=== PATIENT | male | born 1975 | race African-American/Black ===

== ENCOUNTER 2019-06-17 14:12 | Inpatient (IN) | payer SELFPAY ==
[2019-06-17] MEDS ORDERED: Ondansetron ODT 4 MG TAB PO PRN (16:06)
[2019-06-17] MEDS ORDERED: Nitroglycerin 0.4 MG TAB (25 Tab Bottle) SL PRN (16:08)
[2019-06-17 16:35] LABS: CKMB 40.2 ng/mL (0-6.6)
[2019-06-17] MEDS ORDERED: Acetaminophen 650 MG Suppository PR PRN (17:15)
[2019-06-17] MEDS ORDERED: Sodium Chloride 0.9% 1,000 ML IV SCH (17:15)
[2019-06-17 18:29] VITALS: BMI 27.8
--- NOTE | 2019-06-17 18:29 | HP ---
TIME OF ADMISSION: 1600 hours. PRIMARY CARE PHYSICIAN: None. CHIEF COMPLAINT: Chest pain. HISTORY OF PRESENT ILLNESS: Mr. Price is a pleasant 44-year-old gentleman, who presents with chest pain that has been ongoing for the last week and a half and significantly worse this morning. The patient states the pain has been about 5/ 10 in severity, lasting a few minutes, which he described as a burning sensation in the center of his chest. The patient states it felt like indigestion and he would burp or drink liquids and it would help to alleviate his discomfort. He denies any associated shortness of breath. No recent cough or hemoptysis. Has not experienced anything like this in the past. Today, however, the pain became severe and around 9:00 a.m., he states it was in the center of his chest, once again described as a burning sensation, but in addition to that, he felt as if someone was standing on his chest and states the pain was a 9/10 in severity. He denies any associated shortness of breath or diaphoresis. States the discomfort does not seem to be triggered by activity level. He states it would come whenever he was resting or sometimes when he was active. There did not seem to be any particular pattern according to the patient. He works on a farm. He presented to an outside ER due to concerns over the severe pain and the fact that he then began to experience pain radiating down his left arm with numbness. Denies any weakness. At the outside ER, he underwent an EKG that showed T-wave abnormalities. He had a troponin done, which was elevated at 0.103. The patient was therefore treated for an NSTEMI. He was given aspirin and Lovenox, also received nitro, which he states helped to alleviate his pain. The patient states he has had no recurrent pain since then. He was transferred here for further workup and management. A second troponin was done showing a level of 4.285. An EKG was done and initial EKG done at 1445 demonstrated sinus bradycardia with ST segments showing no abnormalities. He had nonspecific T-wave abnormalities. A repeat EKG at 1628 showed sinus bradycardia, again similar changes with the T-waves. The patient was noted to have a T-waves in the lateral precordial leads, V4 to V6. The patient states he continues to be pain free. Of note, he did have a chest x -ray done, which was unremarkable. PAST MEDICAL HISTORY: None. PAST SURGICAL HISTORY: None. SOCIAL HISTORY: The patient denies any alcohol use or tobacco use. He did smoke previously. He quit in the last year. States he smokes occasional marijuana, but denies any other drug use including cocaine. ALLERGIES: NO KNOWN DRUG ALLERGIES. CURRENT MEDICATIONS: None. PHYSICAL EXAMINATION: GENERAL: The patient appears well developed, well nourished, and is in no acute distress. VITAL SIGNS: Temperature 97.5, pulse 52, blood pressure 154/108, respirations 16, O2 saturation 99% on room air. HEENT: Normocephalic and atraumatic. Pupils are equal, round, and reactive to light. Sclerae without icterus. Oropharynx is clear. NECK: Supple without lymphadenopathy. LUNGS: Clear to auscultation bilaterally without wheezes, rales, or rhonchi. CARDIAC: Regular rate and rhythm without audible murmurs, rubs, or gallops. ABDOMEN: Soft, nontender, nondistended. Normoactive bowel sounds present. EXTREMITIES: No lower leg swelling or edema. NEUROLOGIC: Alert and oriented x3. SKIN: No rash or jaundice. INVESTIGATIONS: As mentioned above in HPI. IMPRESSION AND PLAN: Mr. Price is a 44-year-old gentleman, who has been referred for management of the following. 1. Non-ST segment elevation myocardial infarction. He has been treated with aspirin, Nitro-B.i.d., and Lovenox at outside facility. The patient with a second troponin of 4.285 compared to 0.103. Consult has been placed to Dr. Ramos by Dr. Boyce, who is awaiting recommendation. Otherwise, we will plan to continue with current management. The patient remains pain-free at present. We will obtain a urine drug screen. 2. Uncontrolled blood pressure. The patient remains hypertensive. We will continue to monitor blood pressure and manage appearance. 3. Gastrointestinal prophylaxis, famotidine. 4. Deep venous thrombosis prophylaxis. Mechanical SCDs. 5. Code status full. Surrogate decision maker is his , Ty Mcleod. The patient's case was discussed with Dr. Olivo, who has advised plan as above. Job ID: [id number] MTDD
[2019-06-17 19:12] LABS: Troponin I 16.259 ng/mL (< 0.028)
[2019-06-17] MEDS: Famotidine/PF 20 mg/2ml Vial SLOW IVP SCH (19:45)
[2019-06-17] MEDS: Acetaminophen 325 MG TAB PO PRN (19:51)
[2019-06-17] MEDS ORDERED: Metoclopramide HCl 10 MG/2 ML VIAL IVP SCH (20:15)
[2019-06-17] MEDS: Sodium Chloride 0.9% 1,000 ML IV SCH (20:27)
[2019-06-17] MEDS ORDERED: Communication Order-Pharmacy FS SCH (20:30)
[2019-06-17] MEDS ORDERED: Heparin (Artline) 500 ML ONE ×2 (20:41→20:42)
[2019-06-17] MEDS ORDERED: Lidocaine 1% (PF) 30 ML VIAL ONE (20:42)
[2019-06-17] MEDS ORDERED: Enoxaparin Sodium 120 MG/0.8 ML SYRINGE SC SCH (21:00)
[2019-06-17] MEDS ORDERED: Atorvastatin Calcium 40 MG TAB PO SCH (21:00)
[2019-06-17] MEDS ORDERED: Verapamil 5 MG/2 ML VIAL ONE (21:07)
[2019-06-17] MEDS ORDERED: Heparin 10,000 UNITS/1 ML VIAL ONE (21:07)
[2019-06-17] MEDS ORDERED: Nitroglycerin 100MG/250ML BOT 250 ML ONE (21:08)
--- NOTE | 2019-06-17 21:35 | CON ---
DATE OF CONSULTATION: 06/17/2019 INDICATION FOR CONSULTATION: A 44-year-old gentleman, who was seen earlier today in the emergency room complaining of chest discomfort. EKG did not show any significant ST-segment elevation. He did have slight elevation of cardiac enzymes, which were indeterminate but was still positive, but EKG was unremarkable. His troponin I was 4.2. He has continued to have some chest discomfort and now troponin I last checked was up to 16.2 with an MB of 40.2, which is certainly compatible with what appears to be a [id number] elevation myocardial infarction; however, this could be a circumflex vessel and we may not be able to see this on the EKG. It most likely could be a posterior myocardial infarction and since I have just spoke with the gentleman, he continues to have chest pain, 11/01 to 12/01 and I would suggest that we proceed with cardiac catheterization today in this otherwise healthy gentleman. He has had chest pain on and off for about a week, which he thought was indigestion, but it has continued to be waxing and waning, but now was more chronic and he presented to the emergency room. He is a year-old gentleman with no previous cardiac history. He does not have any history of hypertension, hypercholesterolemia, or diabetes. He did smoke in the past. He said he stopped about 2 weeks ago. Previously, he smoked small cigars up to six or seven a day for the last 10 years. FAMILY HISTORY: Noncontributory. PAST MEDICAL HISTORY: There are no significant operations or illnesses. SOCIAL HISTORY: He is . He smoked in the past as noted above. No alcohol use. 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 ALLERGIES: HE HAS NO ALLERGIES. MEDICATIONS: At home were none. REVIEW OF SYSTEMS: 12-point review of systems is unremarkable except what is noted in the history of present illness. PHYSICAL EXAMINATION: GENERAL: Reveals a well-developed, well-nourished gentleman. He is from [facility]. VITAL SIGNS: Blood pressure 161/93, heart rate is 46, temperature is afebrile, and respiratory rate is 18. HEENT: Shows the head to be normocephalic and atraumatic. Carotid pulses are present. There were no bruits. CHEST: Clear to auscultation without rales, rhonchi, or wheezing. CARDIOVASCULAR: Reveals a regular rhythm, somewhat bradycardic at this time, but no significant murmurs, heaves, thrills, bruits, or rubs are noted. ABDOMEN: Soft, flat, nontender. Positive bowel sounds are present. EXTREMITIES: Showed no clubbing, cyanosis, or edema. Pedal pulses are present. Radial pulses are present. NEUROLOGIC: The patient appears to be fully intact. SKIN: Warm and dry. DIAGNOSTIC DATA: EKG as noted shows a normal sinus rhythm with sinus bradycardia but no acute ST-segment changes are noted. He does have some flattening of the T-waves in the inferior and lateral leads. This has continued to progress. Otherwise, there were no significant abnormalities. LABORATORY DATA: Shows a potassium of 4.2, BUN of 12, and creatinine 1.12. WBC is 7.1, hemoglobin 17.9, and platelet count 280,000. PLAN: I have explained the procedure and the risks to him to include bleeding, infection, possibility of myocardial infarction, CVA, renal insufficiency, allergic contrast reaction, and even the possibility of . He agrees to proceed. We will plan for emergent cardiac catheterization this evening since he continues to have symptoms and cardiac enzymes continue to rise. Job ID: [id number]
[2019-06-17 23:20] LABS: Bacteria/HPF None Seen HPF (None Seen); Bilirubin Negative (Negative); Blood, Urine Negative (Negative); Clarity Clear (Clear); Glucose, Urine (Dipstick) Normal (Negative); Leukocyte Negative Leu/uL (Negative); Nitrite Negative (Negative); Protein, Urine (Dipstick) Negative (Neg-Trace); RBC/HPF 0-3 HPF (0-3); Squamous Epithelial None Seen HPF (0-3); Urobilinogen Normal mg/dL (Less than 2); WBC/HPF 0-3 HPF (0-3)
[2019-06-17 23:24] LABS: Urine Culture Reflex No No
[2019-06-17 23:28] LABS: Cocaine Metabolite Screen Not Detected (NotDetected); Medtox Reader # READER 1; Methamphetamine Not Detected (NotDetected); Opiate Screen Detected (NotDetected); Phencyclidine (PCP) Not Detected (NotDetected); THC/Cannabinoid Screen Detected (NotDetected)
[2019-06-17 23:29] LABS: Amphetamine Not Detected (NotDetected); Barbiturates Screen Not Detected (NotDetected); Benzodiazepine Screen Not Detected (NotDetected); Medtox Control Line Valid? VALID (VALID); Methadone Not Detected (NotDetected); Oxycodone Screen Not Detected (NotDetected); Tricyclic Screen Not Detected (NotDetected)
[2019-06-17] MEDS: Nitroglycerin 2% Ointment 1 INCH/1 GM Packet TOP SCH (23:36)
[2019-06-18 04:51] LABS: #Basophils 0.1 thou/uL (0.0-0.2); #Eosinphils 0.3 thou/uL (0.0-0.7); #Monocytes 0.9 thou/uL (0.11-0.59); #Neutrophils 6.4 thou/uL (1.40-6.50); %Eosinophils 2.9 % (0.0-10.0); %Monocytes 8.8 % (0.0-10.0); %Neutrophils 59.2 % (42.0-75.0); Hemoglobin 16.2 g/dL (14.0-18.0); Mean Corpuscular HGB CONC 34.2 g/dL (32.0-36.0); Mean Corpuscular Hemoglobin 31.7 pg (27.0-31.0); Mean Corpuscular Volume 92.5 fL (78.0-98.0); Mean Platelet Volume 7.9 fL (7.4-10.4); Platelet Count 210 thou/uL (130-400); RBC Distribution Width 11.5 % (11.5-14.5); Red Blood Cell (RBC) Count 5.13 mill/uL (4.70-6.10); White Blood Cell (WBC) Count 10.7 thou/uL (4.8-10.8)
[2019-06-18] MEDS: Nitroglycerin 2% Ointment 1 INCH/1 GM Packet TOP SCH ×2 (04:55→12:08)
[2019-06-18 05:05] LABS: ALT (SGPT) 34 U/L (8-55); AST (SGOT) 65 U/L (5-34); Albumin 4.2 g/dL (3.5-5.0); Alkaline Phosphatase 75 U/L (40-110); Anion Gap 11 mmol/L (10-20); BUN (Urea Nitrogen) 11 mg/dL (8.9-20.6); Bilirubin, Total 0.8 mg/dL (0.2-1.2); Calc. Creatinine Clearance 135 mL/min (70-130); Calcium 9.4 mg/dL (7.8-10.44); Carbon Dioxide 25 mmol/L (22-29); Cardiac Risk 6.4 (Less than 4.5); Chloride 104 mmol/L (98-107); Cholesterol 230 mg/dl (< 200 Desired); Estimated GFR-MDRD 89; Globulin 2.7 g/dL (2.4-3.5); Glucose 102 mg/dL (70-105); HDL Cholesterol 36 mg/dL (>60 Neg Risk); LDL Cholesterol, Calculated 160 mg/dL; Potassium 4.1 mmol/L (3.5-5.1); Protein, Total 6.9 g/dL (6.0-8.3); Sodium 136 mmol/L (136-145); Triglycerides 170 mg/dL (Less than 150)
[2019-06-18 05:14] LABS: Critical Call Chem Troponin I RESULT DECREASING
[2019-06-18 05:34] LABS: CKMB 34.2 ng/mL (0-6.6); Critical Call CKMB RESULT DECREASING
[2019-06-18] MEDS ORDERED: TICAGRELOR 90 MG TABLET ONE (06:30)
[2019-06-18] MEDS: Acetaminophen 325 MG TAB PO PRN (07:29)
[2019-06-18] MEDS: Famotidine/PF 20 mg/2ml Vial SLOW IVP SCH (07:30)
[2019-06-18] MEDS ORDERED: TICAGRELOR 90 MG TABLET PO SCH (09:00)
[2019-06-18] MEDS ORDERED: Aspirin Chewable 81 MG TAB PO SCH (09:00)
[2019-06-18] MEDS ORDERED: Aspirin 81 mg Enteric Coated Tablet PO SCH ×2 (09:00)
[2019-06-18] MEDS ORDERED: Lisinopril 2.5 MG TAB PO SCH ×3 (09:00→10:45)
[2019-06-18] MEDS ORDERED: Carvedilol 3.125 MG TAB PO SCH ×2 (09:30→17:00)
[2019-06-18] MEDS ORDERED: Lisinopril 5 MG TAB PO SCH (09:30)
[2019-06-18] MEDS: Sodium Chloride 0.9% 1,000 ML IV SCH (10:17)
[2019-06-18] MEDS ORDERED: FLU VACC QS2019-20(6MOS UP)/PF 60 MCG/0.5 ML SYRINGE IM ONE (12:00)
--- NOTE | 2019-06-18 13:39 | PDOC.CPN ---
- Subjective Date: 06/18/19 Time: 13:39 Interval history: The pt seen and examined. No overnight events. No cardiac complaints. - Objective Allergies/Adverse Reactions: Allergies Allergy/AdvReac Type Severity Reaction Status Date / Time No Known Allergies Allergy Verified 06/17/19 18:28 Visit Medications: Current Medications Acetaminophen (Tylenol) 650 mg PO Q4H PRN PRN Reason: Headache/Fever/Mild Pain (1-3) Last Admin: 06/18/19 07:29 Dose: 650 mg Acetaminophen (Tylenol) 650 mg NC Q4H PRN PRN Reason: Headache/Fever/Mild Pain (1-3) Aspirin (Aspirin Chewable) 81 mg PO DAILY [facility] Last Admin: 06/18/19 07:30 Dose: 81 mg Atorvastatin Calcium (Lipitor) 80 mg PO HS [facility] Last Admin: 06/17/19 19:45 Dose: 80 mg Carvedilol (Coreg) 3.125 mg PO BID-[facility] Famotidine (Pepcid) 20 mg SLOW IVP Q12HR [facility] Last Admin: 06/18/19 07:30 Dose: 20 mg Lisinopril (Zestril) 5 mg PO DAILY [facility] Nitroglycerin (Nitrostat) 0.4 mg SL Q5MIN PRN PRN Reason: Chest Pain Nitroglycerin (Nitro-Bid 2% Ointment) 0.5 inch TOP Q6HR [facility] Last Admin: 06/18/19 12:08 Dose: Not Given Ondansetron HCl (Zofran Odt) 4 mg PO Q6H PRN PRN Reason: Nausea/Vomiting Sodium Chloride (Flush - Normal Saline) 10 ml IVF Q12HR [facility] Sodium Chloride (Flush - Normal Saline) 10 ml IVF PRN PRN PRN Reason: Saline Flush Ticagrelor (Brilinta) 90 mg PO BID [facility] Last Admin: 06/18/19 07:30 Dose: 90 mg Vital Signs & Weight: Vital Signs Temp Pulse Pulse Pulse Resp BP BP 06/18/19 11:38 98.0 F 75 20 06/18/19 11:35 77 75 139/98 H 135/101 H 06/18/19 07:51 06/18/19 07:25 97.7 F 56 L 18 06/18/19 03:18 98.6 F 77 17 BP Pulse Ox Pulse Ox Pulse Ox 06/18/19 11:38 139/98 H 96 06/18/19 11:35 96 95 06/18/19 07:51 95 06/18/19 07:25 153/94 H 95 06/18/19 03:18 159/86 H 95 Weight 241 lb - Physical Exam General: alert & oriented x3 HEENT: mucus membranes moist Neck: supple neck Cardiac: regular rate and rhythm, S1/S2 Lungs: clear to auscultation Neuro: cranial nerve 2-12 intact Abdomen: unremarkable Extremities: no cyanosis Skin: clear Musculoskeletal: normal range of motion - Labs Result Diagrams: 06/18/19 04:11 06/18/19 04:11 Troponin/CKMB CK-MB (CK-2) 34.2 ng/mL (0-6.6) H* 06/18/19 04:11 Troponin I 12.966 ng/mL (< 0.028) H* 06/18/19 04:11 - Telemetry Sinus rhythms and dysrhythmias: sinus rhythm - Assessment/Plan Assessment/Plan: 1. CAD with s/p KIRA stent in Lt Cx on 06/17/2019 - stable; on BBlocker, WANDA, ASA and Brilinta; on Lipitor MAR reviewed * From cardiac standpoint, the pt is stable to d/c home this PM. * The pt will f/u with Dr Ramos' office within 2 wks. * Brilinta sample for 2 wks and then change to Plavix 75mg qd. pt. seen and eval. by me. I agree with the A/P by the TOWN [employer]. chest clear. RRR. He did well s/p ptca/stent to the L-circ. Nl. EF on echo. Okay to d/c to home.
[2019-06-18 16:14] VITALS: BP 142/91; TEMP 97.9
--- NOTE | 2019-06-18 20:24 | DIS ---
DATE OF ADMISSION: 06/17/2019 DATE OF DISCHARGE: 06/18/2019 DISCHARGE DIAGNOSES: Non-ST elevation myocardial infarction, status post percutaneous coronary intervention to the circumflex, hypertension, hyperlipidemia. CONSULTATIONS: Dr. Ramos for Cardiology. PROCEDURES: Cardiac catheterization. BRIEF HISTORY OF PRESENT ILLNESS: This is a 44-year-old male with a past medical history of hypertension and hyperlipidemia, who had presented to the emergency room with a burning sensation in his chest over the past 1 week. The patient stated that he would frequently belch to alleviate his discomfort. He denied any fevers, chills, or cough. On the day of admission, the patient reported that his chest pain was a 9/10 and he felt like someone was standing on his chest. He did report that he was a former smoker, however, quit earlier this year. He did report to smoking marijuana. Upon arrival to the ER, the patient had an EKG which showed normal sinus rhythm with sinus bradycardia and some flattening of the T- waves in the inferior and lateral leads. The patient's initial troponin was 0.103 on arrival to the emergency room. He was given aspirin and Lovenox at an outside facility prior to arrival to the ER. The patient was admitted for workup of NSTEMI. NSTEMI s/p PCI to left circumflex: The patient's troponins trended up to 16, so the patient underwent a cardiac cath on 06/17, which showed a 99% stenosis in the left circumflex. The patient had normal LAD and normal MCA and normal RCA. The patient underwent PCI with a drug-eluting stent, 3.5 x 16 mm, with no residual stenosis. The following day, the patient states that he was chest pain free on ambulation. He will be discharged with aspirin 81 mg, atorvastatin 80 mg, Coreg 3.125 mg p.o. b.i.d., lisinopril 5 mg daily, and Brilinta 90 mg p.o. b.i.d. Per Cardiology, the patient was given a sample of Brilinta since he did not have any insurance. He was advised by Cardiology to take the sample until he runs out and thereafter, start taking Plavix 75 mg daily for a year. These medications were sent to his preferred pharmacy. He was advised to follow up with Dr. Ramos from Cardiology in 2 to 4 weeks and follow up with the PCP in 1 week. Hypertension: The patient was started on lisinopril 5 mg p.o. daily and Coreg 3.125 p.o. b.i.d. His blood pressure at the time of discharge was 142/91. Hyperlipidemia: The patient was noted to have an LDL of 160, and a total cholesterol of 230. He was started on atorvastatin 80 mg at bedtime. Ideally, his LDL should be less than 100. The patient needs outpatient followup for this. DISCHARGE PHYSICAL EXAMINATION: VITAL SIGNS: Temperature 97.9, heart rate 64, blood pressure 142/91, respiratory rate 18, O2 saturation 97% on room air. GENERAL: The patient is alert, awake, and oriented x3. CVS: Regular rate and rhythm with no murmurs, rubs, or gallops. LUNGS: Clear to auscultation bilaterally. ABDOMEN: Positive bowel sounds, soft, nontender, and nondistended. EXTREMITIES: No edema. PERTINENT LABORATORY DATA: CBC on 06/18: Was normal. CMP on 06/18: Was unremarkable, except for an AST of 65. This may have been secondary to his NSTEMI. Troponins: 0.103, which increased to 16.259 and down trended to 12.966 on . CK-MB on 06/18: Was 34.2. Lipid panel: Triglycerides 170, cholesterol 230, LDL 160, HDL 36. PERTINENT IMAGING: Echocardiogram on 06/18: EF was 55% to 60%, there was trace MR, trivial AR, and trace TR. Cardiac catheterization report: Shows 99% stenosis in the left mid circumflex. The LAD, LMCA, and RCA were normal. DISCHARGE CONDITION: Stable. ACTIVITY: As tolerated. DIET: Heart healthy diet. DISCHARGE MEDICATIONS: 1. Aspirin 81 mg p.o. daily. 2. Atorvastatin 80 mg p.o. at bedtime. 3. Coreg 3.125 mg p.o. b.i.d. 4. Plavix 75 mg p.o. daily. 5. Lisinopril 5 mg p.o. daily. 6. Brilinta 90 mg p.o. b.i.d. 7. Nitroglycerin 0.4 mg sublingual q.5 minutes p.r.n. DISCHARGE INSTRUCTIONS: The patient should follow up with his PCP in a week and follow up with Dr. Ramos from Cardiology in 2 to 4 weeks. He should return to the hospital if he has any recurrent pain in his chest, left arm pain, diaphoresis, or shortness of breath. Job ID: [id number] MTDD
[2019-06-19] MEDS ORDERED: Lisinopril 5 MG TAB PO SCH (09:00)
--- NOTE | 2019-06-19 14:03 | EKG ---
Test Reason : Blood Pressure : / mmHG Vent. Rate : 048 BPM Atrial Rate : 048 BPM P-R Int : 146 ms QRS Dur : 090 ms QT Int : 416 ms P-R-T Axes : 040 035 016 degrees QTc Int : 371 ms Marked sinus bradycardia Nonspecific T wave abnormality Abnormal ECG When compared with ECG of 17-JUN-2019 16:18, (Unconfirmed) Nonspecific T wave abnormality now evident in Inferior leads Confirmed by VANESSA MAYFIELD, SRosa ([id number]) on 06/19/2019 2:03:01 PM Referred By: ALBAN Confirmed By:DR. Josy MENDEZ MD
--- NOTE | 2019-06-19 14:05 | EKG ---
Test Reason : Blood Pressure : / mmHG Vent. Rate : 057 BPM Atrial Rate : 057 BPM P-R Int : 142 ms QRS Dur : 088 ms QT Int : 424 ms P-R-T Axes : 036 042 038 degrees QTc Int : 412 ms Sinus bradycardia Abnormal ECG When compared with ECG of 17-JUN-2019 16:18, (Unconfirmed) No significant change was found Confirmed by VANESSA MAYFIELD, SRosa ([id number]) on 06/19/2019 2:05:15 PM Referred By: ALBAN Confirmed By:DR. Josy MENDEZ MD
== END 2019-06-18 17:24 | disposition home or self-care (01) | DRG 247 ==
LOC: ERS 14:12 → 2NO 15:28
PROVIDERS: ADMIT Internal Medicine; ATTEND Internal Medicine
PROC: 027034Z Dilation of Coronary Artery, One Artery with Drug-eluting Intraluminal Device, Percutaneous Approach (ICD-10-PCS; principal; 2019-06-17)
PROC: 4A023N7 Measurement of Cardiac Sampling and Pressure, Left Heart, Percutaneous Approach (ICD-10-PCS; 2019-06-17)
PROC: B2151ZZ Fluoroscopy of Left Heart using Low Osmolar Contrast (ICD-10-PCS; 2019-06-17)
PROC: B2111ZZ Fluoroscopy of Multiple Coronary Arteries using Low Osmolar Contrast (ICD-10-PCS; 2019-06-17)
DX: I21.4 Non-ST elevation (NSTEMI) myocardial infarction (principal); I25.10 Atherosclerotic heart disease of native coronary artery without angina pectoris; I10 Essential (primary) hypertension; E78.5 Hyperlipidemia, unspecified; Z79.891 Long term (current) use of opiate analgesic
CPT/HCPCS: 36415; 80053; 80061; 80306; 81001; 82553; 84484; 85025; 85347; 92941; 93005; 93010; 93306; 93454; 93458; 93798; 94760; C1769; C1874; C1887; C9606; J1644; J2001; J2765; S0028

== ENCOUNTER 2023-12-20 16:00 | Outpatient (CLI) | payer OTHER | END 2023-12-20 16:01 | disposition home or self-care (01) | LOC: SLEEPLAB 16:00 | PROVIDERS: ATTEND Physician Assistant | DX: G47.33 Obstructive sleep apnea (adult) (pediatric) (principal); I10 Essential (primary) hypertension; I25.10 Atherosclerotic heart disease of native coronary artery without angina pectoris; R09.89 Other specified symptoms and signs involving the circulatory and respiratory systems; R51.9 Headache, unspecified | CPT/HCPCS: 95800 ==